=== PATIENT | female | born 2000 | race African-American/Black ===

== ENCOUNTER 2019-05-02 18:21 | Emergency (ER) | payer MEDICAID ==
[~2019-05-02] VITALS: Ht 170.2 cm; Wt 55.0 kg
[2019-05-02 18:29] VITALS: BP 120/76
== END 2019-05-02 19:48 | disposition left against medical advice (07) ==
LOC: ER 18:48
DX: Z53.21 Procedure and treatment not carried out due to patient leaving prior to being seen by health care provider (principal)